=== PATIENT | male | born 1995 | race Caucasian/White ===

== ENCOUNTER 2017-01-07 20:50 | Emergency (ER) | payer SELFPAY ==
[2017-01-07] MEDS ORDERED: ACETAMINOPHEN 500 MG TABLET PO ONE (23:27)
--- NOTE | 2017-01-07 23:31 | ERNOTE ---
Lower Extremity HPI - Narrative Date of Service: 01/07/17 - General Lower Extremities Pain: ankle: left Time Seen by Provider: 01/07/17 23:01 Source: patient - Immun/Allergies/Home Medications Immunizations: IMMUNIZATION HX Immunizations Up to Date Yes History of Influenza Vaccine No Allergies/Adverse Reactions: Allergies Allergy/AdvReac Type Severity Reaction Status Date / Time Penicillins Allergy Verified 01/07/17 21:17 Home Medications: HOME MEDICATIONS Naproxen [Naprosyn] 500 mg PO BID PRN #30 tablet 01/07/17 [Last Taken Unknown] - History of Present Illness Narrative: Twisted left ankle. No other injures incurred. Occurred: just prior to arrival Method of Injury: Reports: twisted Reason for Fall: Reports: slipped Loss of Consciousness: Reports: no loss of consciousness Modifying Factors - (Improves): Reports: other - rest Modifying Factors - (Worsens): Reports: other - weight bearing Other Injuries: Reports: none Review of Systems - Review of Systems Constitutional: Present: no symptoms reported EYE: Present: no symptoms reported ENT: Present: no symptoms reported Respiratory: Present: no symptoms reported Cardiology: Present: no symptoms reported Gastrointestinal/Abdominal: Present: no symptoms reported Genitourinary: Present: no symptoms reported Musculoskeletal: Present: See HPI Skin: Present: no symptoms reported Neurological: Present: no symptoms reported Endocrine: Present: no symptoms reported Hematologic/Lymphatic: Present: no symptoms reported Psych: Present: no symptoms reported - Patient's Past Medical History Patient History - Medical: No pertinent hx Patient History - Cardiac/Respiratory: No pertinent hx Patient History - Cancer: No Hx of Cancer Patient History - Surgical Procedures: No surgical history - Social History Living Situations: home Smoking Status: Never smoker - Immunizations Immunizations Up to Date: Yes History of Influenza Vaccine: No Physical Exam - Physical Exam General Appearance: Present: no apparent distress Eye Exam: Normal inspection: bilateral, PERRL: bilateral Ears, Nose, Throat: Present: normal ENT inspection Neck: Present: normal inspection Respiratory: Present: no respiratory distress Cardiovascular/Chest: Present: regular rate, rhythm Gastrointestinal/Abdominal: Present: nondistended Back Exam: Present: normal range of motion Extremity Exam: Present: other - minimal swelling at the left ankle. NV intact distally. No gross instability. Neurological Exam: Present: alert, oriented, normal mood/affect Skin Exam: Present: normal color ED Progress - Vital Signs Patient's Vital Signs:: I have reviewed the patient's vital signs. Vital Signs: Vital Signs 01/07/17 21:13 Temperature 36.9 C Pulse Rate 88 Respiratory 18 Rate Blood Pressure 167/100 O2 Sat by Pulse 99 Oximetry - Progress/Reassessment Chief Complaint: Ankle Injury/ Pain Departure Clinical Impression: Ankle sprain - Departure Disposition: Home self-care Condition: Fair Instructions: Ankle Sprain Print Language: Malian Additional Instructions: Use a lot of ice on the left ankle. Use the ankle boot for support. Prescriptions: Naproxen [Naprosyn] 500 mg PO BID PRN #30 tablet PRN Reason: Pain
[2017-01-08 01:06] VITALS: BP 143/86
== END 2017-01-08 | disposition home or self-care (01) ==
LOC: ER 20:50
DX: S93.402A Sprain of unspecified ligament of left ankle, initial encounter (principal); W01.0XXA Fall on same level from slipping, tripping and stumbling without subsequent striking against object, initial encounter; X50.1XXA Overexertion from prolonged static or awkward postures, initial encounter